=== PATIENT | male | born 1985 | race African-American/Black ===

== ENCOUNTER 2022-08-11 14:38 | Emergency (ER) | payer MEDICAID, SELFPAY ==
[2022-08-11 15:59] VITALS: BP 131/83; PULSE 75; RESP 18; TEMP 36.5; O2SAT 100; BMI 25.8
[2022-08-11 17:45] LABS: Appearance Urine Clear; Color Urine Yellow; Glucose Urine UA Negative (Negative); Leukocyte Esterase Urine Negative (Negative); Nitrite Urine Negative (Negative); Urine Blood Negative (Negative); Urine Ketones Trace mg/dL (Negative); Urine Protein Negative (Neg-Trace)
--- NOTE | 2022-08-11 18:20 | ED_ITS ---
HPI - General Adult General Chief complaint: General Medical Stated complaint: Rash Time Seen by Provider: 08/11/22 15:29 Source: patient, RN notes reviewed and old records reviewed Mode of arrival: ambulatory History of Present Illness HPI narrative: 36-year-old male with no significant past medical history presenting to ED with family complaining of rash to bilateral upper extremities and groin x 2 months. Admits rash is pruritic. Family presenting with similar symptoms. Admits recently immigrated to this country from [place] and states traveled through dirty water. Denies fever, chills, new medications/known new exposures, insect bites, penile discharge, dysuria, abdominal pain, vomiting. Patient is sexually active with 1 partner Onset (ago): month(s) Related Data Previous Rx's Medication Instructions Recorded cetirizine 10 mg capsule (Zyrtec) 10 mg PO DAILY PRN allergy 08/11/22 symptoms #10 caps diphenhydramine HCl 25 mg capsule 25 mg PO TID PRN itching #10 caps 08/11/22 (Benadryl) penicillin V potassium 500 mg 500 mg PO BID 10 days #20 tabs 08/11/22 tablet Allergies Allergy/AdvReac Type Severity Reaction Status Date / Time No Known Allergies Allergy Verified 08/11/22 16:37 Review of Systems Review of Systems: Constitutional: No Fever, No Chills ENT/Mouth: No Ear Pain, No sore throat, No Rhinorrhea, No Swallowing Difficulty Cardiovascular: No Chest Pain, No SOB Respiratory: No Cough Gastrointestinal: No Nausea, No Vomiting, No Diarrhea, No Constipation, No Abdominal pain Genitourinary: No Dysuria, No Urinary Incontinence/retention, No Urgency, No Flank Pain Musculoskeletal: No joint pain, No Myalgias Skin: No Skin Lesions, +rash Neuro: No Weakness Yes all other systems are reviewed and are negative Constitutional: Constitutional: Reports as per [facility] Past Medical History Attestation statement: The following information was validated with the patient. Source: old records reviewed Social History Social History Alcohol intake: current Smoked in Last 30 Days: No Use of substances other than those prescribed or required for medical reasons: No Advance Directives: No Advance Directives Information Provided: No Physical Exam ED Vital Signs: Vital Signs - 24 hr 08/11/22 15:59 08/11/22 19:07 Temperature 97.7 F Pulse Rate 75 68 Respiratory Rate 18 18 Blood Pressure 131/83 135/84 Pulse Oximetry 100 100 Oxygen Delivery Method Room Air Room Air BMI result Body Mass Index 25.8 Const General: cooperative, healthy appearing and no acute distress Orientation/consciousness: patient oriented x3 Limitations: no limitations HENMT Head: Yes normal to inspection and Yes atraumatic Ears: hearing grossly normal bilaterally General nose exam: Normal external nose present Face and sinus: Yes normal facial exam Eyes General: appearance normal, both eyes and all related structures EOM: EOMs intact bilaterally Neck Neck: Yes normal visual inspection and Yes no meningeal signs Resp Effort & Inspection: normal respiratory effort and no respiratory distress Cardio Rate: regular rate Skin Other: Small papules to bilateral forearms Non pigmented raised area to genital lesion without ulceration, no erythema/warmth, nontender. No discharge No mucous membrane, palm or sole involvement Wounds: no wounds Neuro General: patient oriented x3, tone normal and no meningeal signs Gait exam (Neuro): Normal gait present Extrem General: Yes normal to inspection Medical Decision Making Medical Decision Making MDM Narrative: 36-year-old male with no significant past medical history presenting to ED with family complaining of rash to bilateral upper extremities and groin x 2 months. On exam vital signs stable, NAD, physical exam as noted above. Non pigmented/skin color lesions noted to penile shaft without ulceration, no erythema/cellulitis, no discharge. No mucous membrane or palm/sole involvement. No evidence of SJS/TENS. Unlikely malaria Plan: Labs including tick-borne illness/Lyme, syphilis, UA, STI testing Family presenting with similar symptoms/all have rash and recently immigrated. Case was discussed with Dr. Hassan who also evaluated patient has. Case discussed with infectious Disease Dr. Estrada & based on collective symptoms possibly eczematous dermatitis or scarlet fever. Will test for syphilis titer, recommended close PCP follow-up and empiric treatment for scarlet fever with oral penicillin for family Please refer to course for remaining clinical decision making, interpretation of labs/imaging results, and discussions with consultants and/or family members. Differential Diagnosis Differential Diagnoses: The differential diagnosis associated with the presentation includes As above Consult Healthcare Provider Management of the patient was discussed with: [employer] Lab Data [facility] Lab Attestation statement: I reviewed the patient's lab results. Labs: Lab Results 08/11/22 Range/Units 17:33 Urine Color Yellow Urine Appearance Clear Urine pH 6.0 (5.0-9.0) Ur Specific [place] 1.020 (1.005-1.025) Urine Protein Negative (Neg-Trace) mg/dL Urine Glucose (UA) Negative (Negative) mg/dL Urine Ketones Trace (Negative) mg/dL Urine Blood Negative (Negative) Urine Nitrite Negative (Negative) Ur Leukocyte Esterase Negative (Negative) Radiology Impression Discussion of test interpretation with radiology: I have reviewed the radiologist's reading. External Record Review External record reviewed: Inpatient record, Office record, Outpatient record, Prior outpatient labs, Prior outpatient radiology, Primary care record and Outside ED record Tests considered The following testing was considered but not selected: As above Discharge Plan Discharge Clinical Impression: Rash Patient Disposition: Home, Self-Care Instructions: Acute Rash (ED) Additional Instructions: We tested you for tick-borne illnesses as well as sexually transmitted infection You need to establish care with a primary care doctor for further testing Is symptoms persist or worsen return to the ED Penicillin V is an antibiotic please take as prescribed Benadryl and Zyrtec will also help with itching/allergic symptoms, Benadryl will make you drowsy Le hicimos pruebas para detectar enfermedades transmitidas por garrapatas e infecciones de transmisi?n sexual Debe establecer atenci?n con un m?dico de atenci?n primaria para realizar m?s pruebas. Si los s?ntomas persisten o empeoran, regrese al servicio de urgencias. La penicilina V es un antibi?sujey, t?thayer seg?n lo prescrito. Benadryl y Zyrtec tambi?n ayudar?n con la picaz?n/s?ntomas al?rgicos, Benadryl lo adormecer?. Prescriptions: New penicillin V potassium 500 mg tablet 500 mg PO BID 10 Days Qty: 20 0RF diphenhydramine HCl [Benadryl] 25 mg capsule 25 mg PO TID PRN (Reason: itching) Qty: 10 0RF Zyrtec 10 mg capsule 10 mg PO DAILY PRN (Reason: allergy symptoms) Qty: 10 0RF Referrals: [facility] [place] [facility] [place] [facility] [place] [facility] [place] [facility] [place]] Interventions: ED Discharge Assessment Last Done: 08/11/22 19:08 Discharge Date/Time: 08/11/22 19:10 Print Language: Upper Sorbian
[2022-08-11 19:07] VITALS: BP 135/84; PULSE 68; RESP 18; O2SAT 100
[2022-08-12 04:47] LABS: Syphilis Screen Nonreactive (Nonreactive)
[2022-08-12 06:04] LABS: CT PCR NOT DETECTED (Not Detect.); NG PCR NOT DETECTED (Not Detect.)
[2022-08-14 00:08] LABS: A. Phagocytphilium DNA,RT-PCR NOT DETECTED (NOT DETECTED); Babesia Microti DNA, RT-PCR NOT DETECTED (NOT DETECTED); Borrelia Miyamotoi,DNA RT-PCR NOT DETECTED (NOT DETECTED); E.Chaffeensis DNA RT-PCR NOT DETECTED (NOT DETECTED); Lyme(Borrelia ssp)DNA RT-PCR NOT DETECTED (NOT DETECTED)
[2022-08-14 04:28] LABS: Herpes Simplex Type 1 IgG >58.00 index; Herpes Simplex Type 2 IgG 6.67 index
[2022-08-15 05:35] LABS: Lyme Abs Screen <0.90 index
== END 2022-08-11 19:10 | disposition home or self-care (01) ==
PROVIDERS: Physician Assistant; Emergency Provider Emergency Medicine
DX: R21 Rash and other nonspecific skin eruption (principal); B00.9 Herpesviral infection, unspecified
CPT/HCPCS: 0353U; 36415; 81003; 86617; 86618; 86695; 86696; 86780; 87798; 87801; 99283; 99284